=== PATIENT | male | born 1975 | race American Indian/Alaskan Native ===

== ENCOUNTER 2017-03-05 13:04 | Emergency (ER) | payer OTHER ==
[2017-03-05 13:09] VITALS: RESP 18
[2017-03-05] MEDS ORDERED: Tetanus/Diphtheria Toxoids 0.5 ml Syringe IM ONE ×2 (13:39→14:12)
--- NOTE | 2017-03-05 13:39 | C.PDOC ---
History Of Present Illness R HAND INJURY [employer]. 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 S/P IRRIGATION [employer]. CO PAIN W R THUMB MOVEMENT. EXAM MILD DIST NONTOXIC SKIN +2 CM LAC R THENAR AREA. NO FB, ACTIVE BLEEDING EXT +SWELLING DIFF TEND R THENAR AREA. LIMITED ROM R THUMB DUE TO PAIN BUT NO SIG DYSFXN Time Seen by Provider: 03/05/17 13:34 Chief Complaint (Nursing): Abnormal Skin Integrity History Per: Patient History/Exam Limitations: no limitations Onset/Duration Of Symptoms: Sudden Onset ([employer]) Past Medical History Reviewed: Historical Data, Nursing Documentation, Vital Signs Vital Signs: Last Vital Signs Temp 98.8 F 03/05/17 14:35 Pulse 78 03/05/17 14:35 Resp 18 03/05/17 14:35 BP 144/79 03/05/17 14:35 Pulse Ox 99 03/05/17 14:35 - Medical History PMH: Asthma, Bronchitis, Depression, Fractures, Post Traumatic Stress Disorder Family History: States: No Known Family Hx, Unknown Family Hx - Social History Hx Tobacco Use: No Hx Alcohol Use: Yes Hx Substance Use: Yes - Immunization History Hx Tetanus Toxoid Vaccination: No Hx Influenza Vaccination: No Hx Pneumococcal Vaccination: No Review Of Systems Except As Marked, All Systems Reviewed And Found Negative. Musculoskeletal: Positive for: Hand Pain (Right hand injury ). Negative for: Neck Pain Neurological: Negative for: Weakness, Numbness Physical Exam - Physical Exam Appears: Non-toxic, In Acute Distress (Mild) Skin: Warm, Dry, No Rash, Other ((+) 2cm laceration to the right thenar area. No FB. No active bleeding. ) Head: Atraumatic, Normacephalic Respiratory: Normal Breath Sounds Extremity: Normal ROM, Other ((+) Right Hand - Swelling and tenderness to the right thenar area. Limited ROM to the right thumb due to pain but no signs of dysfunction.) Pulses: Left Radial: Normal, Right Radial: Normal Neurological/Psych: Oriented x3, Normal Speech, Normal Motor, Normal Sensation ED Course And Treatment O2 Sat by Pulse Oximetry: 97 (RA) Pulse Ox Interpretation: Normal Laceration - Laceration Repair 1 Wound Length (In cm): 2 Description Of Wound: Linear, Clean Wound Cleansed With: Betadine, Sterile Saline Anesthesia: Lidocaine 2%, With Epi Wound Examination: Irrigated With Saline Wound Closure: Suture Suture Technique And Material Used: Interrupted, Prolene (3.0) Wound Complexity: Simple (X 3) Medical Decision Making Medical Decision Making: PLAN: * Tylenol PO * Tetanus IM * Toradol IM Disposition Counseled Patient/Family Regarding: Diagnosis, Need For Followup - Disposition [facility]errals: [facility] [Provider Group] Disposition: HOME/ ROUTINE Disposition Time: 14:04 Condition: IMPROVED Additional Instructions: RETURN 7 DAYS FOR SUTURE REMOVAL. RETURN IF WORSENING SYMPTOMS. WEAR SPLINT DIRECTED. Instructions: Care For Your Stitches (ED), Laceration (ED) Forms: [facility] (Georgian), Work Excuse - Clinical Impression Clinical Impression: Hand laceration - Scribe Statement The provider has reviewed the documentation as recorded by the Scribe Kamini Proctor Provider Attestation: All medical record entries made by the Scribe were at my direction and personally dictated by me. I have reviewed the chart and agree that the record accurately reflects my personal performance of the history, physical exam, medical decision making, and the department course for this patient. I have also personally directed, reviewed, and agree with the discharge instructions and disposition. Orthopedic Care Application Of:: Volar Splint
[2017-03-05 14:36] VITALS: BP 144/79; PULSE 78; TEMP 98.8
[2017-03-07 07:35] VITALS: O2SAT 97
== END 2017-03-05 14:35 | disposition home or self-care (01) ==
LOC: C.ER 13:04
DX: S61.411A Laceration without foreign body of right hand, initial encounter (principal); W26.0XXA Contact with knife, initial encounter; Y92.89 Other specified places as the place of occurrence of the external cause; Y99.0 Civilian activity done for income or pay
CPT/HCPCS: 12001; 90471; 90714; 96372; 99284; J1885